=== PATIENT | female | born 1975 | race Caucasian/White ===

== ENCOUNTER 2024-06-15 09:27 | Outpatient (CLI) | payer MEDICARE, MEDICAID, SELFPAY ==
--- NOTE | 2024-06-15 09:33 | XR_ITS ---
FINAL REPORT CLINICAL HISTORY: Right foot pain FINDINGS: RIGHT FOOT 3 views of the right foot were obtained. There is no acute fracture or dislocation. There is a moderate hallux valgus deformity. Postoperative changes are seen in the fifth metatarsal tarsal with a healed fracture noted. There is an old healed fracture of the fourth metatarsal. Calcaneal spurring is noted. IMPRESSION: Postoperative and degenerative changes with no acute bony abnormality. Reviewed, Interpreted and Dictated by Sushila Zamora MD Transcribed by Jessi Paul Authenticated and [facility]
--- NOTE | 2024-06-15 09:33 | XR_ITS ---
FINAL REPORT CLINICAL HISTORY: Left foot pain. FINDINGS: LEFT FOOT Three views of the left foot demonstrate no acute fracture or there are mild diffuse degenerative changes. Mild calcaneal spurring is noted. The visualized joint spaces are normally aligned. The soft tissues are unremarkable. IMPRESSION: Mild degenerative changes with no acute bony abnormality. Reviewed, Interpreted and Dictated by Sushila Zamora MD Transcribed by Jessi Paul Authenticated and [facility]
[2024-06-23 18:10] LABS: 1,25 Dihydroxy Vitamin D 15 pg/mL (.); 1,25-Dihydroxy, Vitamin D-2 <10 pg/mL (.); 1,25-Dihydroxy, Vitamin D-3 13 pg/mL (.)
[2024-07-14 11:46] LABS: Cotinine 230.1
== END 2024-06-15 23:59 | disposition home or self-care (01) ==
PROVIDERS: PCP Nurse Practitioner; Visit Provider Podiatrist
DX: M79.671 Pain in right foot; M79.672 Pain in left foot; M20.41 Other hammer toe(s) (acquired), right foot; M20.42 Other hammer toe(s) (acquired), left foot; R60.9 Edema, unspecified; E66.9 Obesity, unspecified; Z68.31 Body mass index [BMI] 31.0-31.9, adult; Z72.0 Tobacco use
CPT/HCPCS: 36415; 73630; 80323; 82652; G0480

== ENCOUNTER 2024-06-18 14:03 | Outpatient (CLI) | payer MEDICARE, MEDICAID, SELFPAY ==
--- NOTE | 2024-06-18 14:08 | US_ITS ---
FINAL REPORT CLINICAL HISTORY: Decreased Pedal Pulses, current smoker, HTN, DM, hyperlipidemia, bilateral claudication, bilateral rest pain. COMPARISON: None FINDINGS: LOWER EXTREMITY SEGMENTAL PRESSURE MEASUREMENTS FINDINGS: Pressure indices are as follows: RIGHT LOWER EXTREMITY: Thigh: 1.29 Calf: 1.28 Ankle, posterior tibial artery: 1.17 Ankle, dorsalis pedis: 1.15 Toe: 1.00 SHANON: 1.17 Comments: Normal LEFT LOWER EXTREMITY: Thigh: 1.28 Calf: 1.38 Ankle, posterior tibial artery: 1.29 Ankle, dorsalis pedis: 1.18 Toe: 0.91 SHANON: 1.29 Comments: Normal IMPRESSION: No evidence of significant peripheral vascular disease. Reviewed, Interpreted and Dictated by Sushila Zamora MD Transcribed by Leatha Hagan Authenticated and [facility]
== END 2024-06-18 23:59 | disposition home or self-care (01) ==
LOC: RT 14:04
PROVIDERS: PCP Nurse Practitioner; Visit Provider Podiatrist
DX: R09.89 Other specified symptoms and signs involving the circulatory and respiratory systems (principal)
CPT/HCPCS: 93923

== ENCOUNTER 2024-07-28 11:41 | Outpatient (CLI) | payer MEDICARE, MEDICAID, SELFPAY ==
--- NOTE | 2024-07-28 11:45 | XR_ITS ---
FINAL REPORT CLINICAL HISTORY: foot pain COMPARISON: 06/15/2024 FINDINGS: RIGHT FOOT: Three views of the right foot were obtained. There is no acute fracture or dislocation. A mild hallux valgus deformity is present. Postoperative changes are noted in the fifth metatarsal. There is a chronic fourth metatarsal fracture. Calcaneal spurs are present, along with mild degenerative change, stable. The joint spaces are otherwise intact. There is no soft tissue abnormality. IMPRESSION: Postoperative changes in the fifth metatarsal, with a chronic fourth metatarsal fracture, without acute bony abnormality. Mild degenerative change and calcaneal spurs. Reviewed, Interpreted and Dictated by Santos Acosta III, MD Transcribed by Roula Bonner Authenticated and . [facility]
== END 2024-07-28 23:59 | disposition home or self-care (01) ==
LOC: RAD 11:43
PROVIDERS: PCP Nurse Practitioner; Visit Provider Podiatrist
DX: M77.41 Metatarsalgia, right foot; S99.921S Unspecified injury of right foot, sequela; M79.671 Pain in right foot
CPT/HCPCS: 73630

== ENCOUNTER 2024-08-12 06:37 | Outpatient (CLI) | payer MEDICARE, MEDICAID, SELFPAY ==
--- NOTE | 2024-08-12 06:53 | CT_ITS ---
FINAL REPORT TECHNIQUE: Thin section axial CT images with coronal and sagittal reformats were performed of the right foot. This study was performed with techniques to keep radiation doses as low as reasonably achievable (ALARA). Individualized dose reduction techniques using automated exposure control or adjustment of mA and/or kV according to the patient''s size were employed. CLINICAL HISTORY: Right Foot Pain FINDINGS: Sideplate and screws are seen securing the fifth metatarsal. There is a healed fracture defect of the fourth metatarsal. Mild hammertoe deformity is noted of the 2nd through 5th digits. There are no masses or fluid collections. There are no soft tissue abnormalities. IMPRESSION: Healed fracture deformities of the fourth and fifth metatarsals with sideplate and screw fixation of the fifth metatarsal. Reviewed, Interpreted and Dictated by Chilo Steward MD Transcribed by Sydni Driver Authenticated and [facility]
== END 2024-08-12 23:59 | disposition home or self-care (01) ==
LOC: RAD 06:39
PROVIDERS: PCP Nurse Practitioner; Visit Provider Podiatrist
DX: M84.374S Stress fracture, right foot, sequela (principal); M79.671 Pain in right foot
CPT/HCPCS: 73700

== ENCOUNTER 2025-01-11 10:41 | Emergency (ER) | payer MEDICARE, MEDICAID, SELFPAY ==
[2025-01-11 11:16] VITALS: BP 102/59; PULSE 87; RESP 18; TEMP 36.7; O2SAT 96; BMI 31.8
--- NOTE | 2025-01-11 11:21 | XR_ITS ---
FINAL REPORT CLINICAL HISTORY: FALL FINDINGS: AP, lateral and oblique views of the left knee were obtained. There is no prior exam for comparison. There is no acute osseous abnormality of the left knee. There is mild degenerative joint disease. The soft tissues are normal. There is no joint effusion. IMPRESSION: No acute osseous abnormality of the left knee. Reviewed, Interpreted and Dictated by Yaima Goel MD Transcribed by Tania Bradley Authenticated and [facility]
--- NOTE | 2025-01-11 11:42 | PC.NURSE ---
PT REPORTS TETANUS LAST YEAR
--- NOTE | 2025-01-11 12:28 | ED_ITS ---
<Statement entered by Nila Boykin DO - 01/11/25 13:52> I was consulted by the CANELO, and we discussed the complexity of the problems being addressed. I approved the treatment and management plan for this patient's care in the emergency department, thus performing a substantive portion of the medical decision making. Nila Boykin DO Discharge Plan Disposition Patient Disposition: Home, Self-Care Condition: Good Prescriptions Prescriptions: No Action zolpidem 10 mg tablet PO Patient Comments: TAKE ONE TABLET BY MOUTH DAILY gabapentin 800 mg tablet PO Ozempic 0.25 mg or 0.5 mg (2 mg/3 mL) pen injector SQ Patient Comments: inject 0.5 milligrams subcutaneously once weekly loratadine 10 mg tablet PO Patient Comments: TAKE ONE TABLET BY MOUTH DAILY buspirone 10 mg tablet PO Patient Comments: Take 1 tablet twice a day by oral route for 90 days. metformin 1,000 mg tablet PO Patient Comments: TAKE ONE TABLET BY MOUTH TWICE DAILY FOR 90 DAYS paroxetine HCl 20 mg tablet PO Patient Comments: TAKE ONE TABLET BY MOUTH DAILY FOR 90 DAYS tizanidine 4 mg tablet PO Patient Comments: Take 1 tablet twice a day by oral route as needed for 90 days. lisinopril-hydrochlorothiazide 20-12.5 mg tablet PO Patient Comments: Take 1 tablet every day by oral route. fenofibrate 160 mg tablet PO meloxicam 15 mg tablet PO atorvastatin 80 mg tablet PO lisinopril 10 mg tablet PO cholecalciferol (vitamin D3) 1,250 mcg (50,000 unit) capsule 1,250 mcg PO WEEKLY 84 Days Qty: 12 3RF Referrals Follow up/Referrals: Jocelyn Lay APRN [Primary Care Provider] - See instructions Activity Restrictions/Add. Instructions Additional Instructions/Restrictions: Please continue taking Tylenol alternating with Motrin for pain and swelling. You may ice rest elevate to help keep the swelling down. If you have continuing new or worsening signs or symptoms follow-up with your PCP. Please continue putting bacitracin over your abrasion. Clinical Impressions Clinical Impression: Contusion of knee, left Qualifiers: Encounter type: initial encounter Qualified Code(s): S80.02XA - Contusion of left knee, initial encounter Abrasion of knee, left Qualifiers: Encounter type: initial encounter Qualified Code(s): S80.212A - Abrasion, left knee, initial encounter Instructions Patient Instructions: DI for Contusion, DI for Abrasion Print Language Print Language: Cypriot Discharge ED Provider: Nila Boykin General Adult HPI <LUIGI Gonzalez - Last Filed: 01/11/25 12:58> General Chief complaint: PAIN Stated complaint: AO 10:00 am fell on ice left knee pain Time Seen by Provider: 01/11/25 12:27 Mode of Arrival: Wheelchair Source of Information: Patient Limitations: No Limitations Description of Symptoms (Recalled from ER Triage Doc. by RN): PT C/O LEFT KNEE PAIN AFTER FALL ON ICE, LANDING IN [place]. ABRASIONS NOTED, COVERED WITH 4X4 History of Present Illness HPI narrative: Patient presents for evaluation of left knee pain after a fall. Patient states she was walking and slipped on ice landing on her left knee. Patient has been able to bear weight but it is very painful. She suffered an abrasion to the anterior knee. She denies any numbness tingling loss of motor or sensory. She did not injure anything else. Related Data Home Medications ?Medication ?Instructions ?Recorded ?Confirmed atorvastatin 80 mg tablet mg PO 06/15/24 09/14/24 buspirone 10 mg tablet mg PO 06/15/24 09/14/24 fenofibrate 160 mg tablet mg PO 06/15/24 09/14/24 gabapentin 800 mg tablet mg PO 06/15/24 09/14/24 lisinopril 10 mg tablet mg PO 06/15/24 09/14/24 lisinopril 20 tab PO 06/15/24 09/14/24 mg-hydrochlorothiazide 12.5 mg tablet loratadine 10 mg tablet mg PO 06/15/24 09/14/24 meloxicam 15 mg tablet mg PO 06/15/24 09/14/24 metformin 1,000 mg tablet mg PO 06/15/24 09/14/24 paroxetine HCl 20 mg tablet mg PO 06/15/24 09/14/24 semaglutide 0.25 mg or 0.5 mg (2 mg SQ 06/15/24 09/14/24 mg/3 mL) subcutaneous pen injector (Ozempic) tizanidine 4 mg tablet mg PO 06/15/24 09/14/24 zolpidem 10 mg tablet mg PO 06/15/24 09/14/24 Previous Rx's ?Medication ?Instructions ?Recorded cholecalciferol (vitamin D3) 1,250 1,250 mcg PO WEEKLY 12 weeks #12 06/24/24 mcg (50,000 unit) capsule caps Allergies Allergy/AdvReac Type Severity Reaction Status Date / Time acetaminophen (From Lortab) Allergy Mild Verified 09/14/24 10:13 hydrocodone (From Lortab) Allergy Mild Verified 09/14/24 10:13 Sulfa (Sulfonamide Allergy Mild Verified 09/14/24 10:13 Antibiotics) SHELLFISH Allergy Severe S-SWELLS-OR Uncoded 11/11/17 15:37 AL/THROAT SULFA (SULFONAMIDE) Allergy Intermediate I-HIVES Uncoded 11/11/17 15:37 PFS <LUIGI Gonzalez - Last Filed: 01/11/25 12:58> PFS Disclaimer: The information contained in this section may have been updated after the patient was seen, as this information can be updated by other users. Family History Father Coronary artery disease Diabetes Hypertension Mother Diabetes Hypertension Brother Diabetes Grandfather Diabetes Grandmother Diabetes Social History Smoking Status: Current every day smoker years smoked: 30 second hand exposure: Yes alcohol intake: never substance use type: denies use current occupational status: retired and disabled Travel in the last 8 weeks: None household members: other details: Mother and Father Have you lived/traveled outside [place] in past 30 days?: No Contact w/someone who lives/traveled outside US past 30 days?: No Exposure to someone with infectious disease in past 14 days?: No Do you have a fever (greater than 100.4 F or 38 C)?: No Have you tested positive for COVID-19: No Exposed to someone with COVID-19 in past 14 days?: No Do you have a sore throat?: No Do you have a cough?: No Do you have any weakness?: No Do you have any diarrhea?: No Are you experiencing any unusual bleeding?: Yes Do you have any muscle aches/pain?: No Do you have any abdominal pain?: No Are you experiencing loss of taste or smell?: No <LUIGI Gonzalez - Last Filed: 01/11/25 12:58> ROS Obtained: Yes Systems reviewed as appropriate & no additional complaints except as documented Physical Exam <LUIGI Gonzalez - Last Filed: 01/11/25 12:58> General General appearance: alert and in no apparent distress Respiratory Respiratory exam: Present normal lung sounds bilaterally Cardiovascular Cardiovascular exam: Present regular rate Neurological Exam Neurological exam: Present alert and oriented X3 Medical Decision Making <LUIGI Gonzalez - Last Filed: 01/11/25 12:58> Medical Records Screening: Per USPSTF and CDC recommendations, given the prevalence of disease in our region, it is our hospital?s policy to screen for HIV and viral Hepatitis for all patients aged 18 and over and those with ongoing risk factors. Dayne Inquiry Pt receiving controlled substance: No Vital Signs: 01/11/25 11:16 01/11/25 12:55 Temperature 98.0 F 98.2 F Temperature Source Oral Oral Pulse Rate 84 Pulse Rate [Radial] 87 Respiratory Rate 18 18 Blood Pressure 110/64 Blood Pressure [Left Arm] 102/59 L Blood Pressure Mean [Left Arm] 73 Blood Pressure Source Automatic Cuff Blood Pressure Source [Left Arm] Automatic Cuff Blood Pressure Position Sitting Blood Pressure Position [Left Arm] Sitting 02 Sat by Pulse Oximetry 96 Oxygen Delivery Method Room Air Room Air Orders (Tests/Meds): ED MEDICATIONS Discontinued Medications Generic Name Dose Route Start Last Admin Trade Name Dede PRN Reason Stop Dose Admin Ibuprofen 800 mg 01/11/25 12:42 01/11/25 12:47 Ibuprofen 400 Mg Tablet PO 01/11/25 12:43 800 mg ONCE ONE Administration Tramadol HCl 50 mg 01/11/25 12:42 01/11/25 12:47 Tramadol 50mg Tablet PO 01/11/25 12:43 50 mg ONCE ONE Administration ORDERS Category Date Time Status Knee XR left 3 views [XR knee LT 3V] Stat Exams 01/11/25 11:21 Completed HIV Combo Stat Lab 01/11/25 11:20 Ordered Hepatitis C Ab Qual. W/ RFX Stat Lab 01/11/25 11:20 Ordered Medical Decision Narrative: In summary patient is a 1-year-old female who presents to the emergency department for evaluation of left knee injury. Patient is hemodynamically stable upon arrival, afebrile. Physical exam is remarkable for a superficial abrasion over the patella of the left knee. The affected area is tender to palpation but I do not feel any bony deformities crepitus. Patient knee joint is stable with no laxity. She does have reduced range of motion due to pain. She is neurovascularly intact distally with good pulses and full range of motion. Patient is able to bear weight in the ER.. Differential diagnosis includes contusion versus fracture versus soft tissue or ligamentous injury etc. Initial workup will be conducted with plain film x-rays. Initial interventions include ibuprofen and tramadol as patient cannot take Tylenol. Initial workup reviewed by me and my informal TURB Tatian of her plain film imaging shows no acute fracture.. Upon repeat evaluation patient reported modest improvement in her discomfort since after initial intervention. Given this patient is appropriate for discharge with bacitracin applied to the wound and wound care instructions strict return precautions. Patient advised if she has continued new or worsening signs or symptoms follow-up with her PCP as she will likely need further imaging and/or referral to orthopedics. Patient verbalized good understanding. Patient is up-to-date on her tetanus status not done today. <Nila Boykin, DO - Last Filed: 01/11/25 13:52> Vital Signs: 01/11/25 11:16 01/11/25 12:55 Temperature 98.0 F 98.2 F Temperature Source Oral Oral Pulse Rate 84 Pulse Rate [Radial] 87 Respiratory Rate 18 18 Blood Pressure 110/64 Blood Pressure [Left Arm] 102/59 L Blood Pressure Mean [Left Arm] 73 Blood Pressure Source Automatic Cuff Blood Pressure Source [Left Arm] Automatic Cuff Blood Pressure Position Sitting Blood Pressure Position [Left Arm] Sitting 02 Sat by Pulse Oximetry 96 Oxygen Delivery Method Room Air Room Air Orders (Tests/Meds): ED MEDICATIONS Discontinued Medications Generic Name Dose Route Start Last Admin Trade Name Freq PRN Reason Stop Dose Admin Ibuprofen 800 mg 01/11/25 12:42 01/11/25 12:47 Ibuprofen 400 Mg Tablet PO 01/11/25 12:43 800 mg ONCE ONE Administration Tramadol HCl 50 mg 01/11/25 12:42 01/11/25 12:47 Tramadol 50mg Tablet PO 01/11/25 12:43 50 mg ONCE ONE Administration ORDERS Category Date Time Status Knee XR left 3 views [XR knee LT 3V] Stat Exams 01/11/25 11:21 Completed HIV Combo Stat Lab 01/11/25 11:20 Ordered Hepatitis C Ab Qual. W/ RFX Stat Lab 01/11/25 11:20 Ordered Medical Decision Narrative: In summary patient is a 49-year-old female who presents to the emergency department for evaluation of left knee injury. Patient is hemodynamically stable upon arrival, afebrile. Physical exam is remarkable for a superficial abrasion over the patella of the left knee. The affected area is tender to palpation but I do not feel any bony deformities crepitus. Patient knee joint is stable with no laxity. She does have reduced range of motion due to pain. She is neurovascularly intact distally with good pulses and full range of motion. Patient is able to bear weight in the ER.. Differential diagnosis includes contusion versus fracture versus soft tissue or ligamentous injury etc. Initial workup will be conducted with plain film x-rays. Initial interventions include ibuprofen and tramadol as patient cannot take Tylenol. Initial workup reviewed by me and my informal TURB Tatian of her plain film imaging shows no acute fracture.. Upon repeat evaluation patient reported modest improvement in her discomfort since after initial intervention. Given this patient is appropriate for discharge with bacitracin applied to the wound and wound care instructions strict return precautions. Patient advised if she has continued new or worsening signs or symptoms follow-up with her PCP as she will likely need further imaging and/or referral to orthopedics. Patient verbalized good understanding. Patient is up-to-date on her tetanus status not done today. Critical Care <LUIGI Gonzalez - Last Filed: 01/11/25 12:58> Critical Care Time Critical Care Time: No
[2025-01-11] MEDS: IBUPROFEN 400 MG TABLET 800 MG PO (12:47)
[2025-01-11] MEDS: TRAMADOL 50MG TABLET 50 MG PO (12:47)
[2025-01-11 12:55] VITALS: BP 110/64; PULSE 84; RESP 18; TEMP 36.8; O2SAT 97
== END 2025-01-11 12:55 | disposition home or self-care (01) ==
PROVIDERS: Emergency Provider Emergency Medicine; PCP Nurse Practitioner
DX: S80.02XA Contusion of left knee, initial encounter (principal); S80.212A Abrasion, left knee, initial encounter; M25.562 Pain in left knee; Z72.0 Tobacco use; W00.0XXA Fall on same level due to ice and snow, initial encounter; Y93.89 Activity, other specified; Y92.9 Unspecified place or not applicable
CPT/HCPCS: 73562; 99283

== ENCOUNTER 2025-04-19 11:30 | Outpatient (CLI) | payer MEDICARE, MEDICAID, SELFPAY ==
--- NOTE | 2025-04-19 11:35 | XR_ITS ---
FINAL REPORT CLINICAL HISTORY: c/o right foot pain COMPARISON: 07/28/2024 FINDINGS: RIGHT FOOT Three views demonstrate no acute fracture or dislocation. The joint spaces appear normal. No acute soft tissue abnormality is seen. There is a sideplate and screw securing the base of the fifth metatarsal. A moderate plantar spur is noted. There is a moderate Dayami deformity. IMPRESSION: Postoperative and degenerative changes without acute bony abnormality. Reviewed, Interpreted and Dictated by Chilo Steward MD Transcribed by Venessa Lopez Authenticated and [facility]
--- NOTE | 2025-04-19 14:15 | XR_ITS ---
FINAL REPORT CLINICAL HISTORY: LF stress FX COMPARISON: 06/15/2024 FINDINGS: LEFT FOOT Three views were obtained. There is no fracture or dislocation. There is old healed fracture deformity at the base of the fifth metatarsal. There is small to moderate plantar calcaneal spur formation. The joint spaces appear normal. No soft tissue abnormality is identified. IMPRESSION: No acute process. Reviewed, Interpreted and Dictated by Chilo Steward MD Transcribed by Tania Bradley Authenticated and [facility]
== END 2025-04-19 23:59 | disposition home or self-care (01) ==
PROVIDERS: PCP Nurse Practitioner; Visit Provider Podiatrist
DX: M19.071 Primary osteoarthritis, right ankle and foot (principal); M84.375A Stress fracture, left foot, initial encounter for fracture; Z98.890 Other specified postprocedural states
CPT/HCPCS: 73630

== ENCOUNTER 2025-05-16 12:32 | Outpatient (CLI) | payer MEDICARE, MEDICAID, SELFPAY ==
--- OUTSIDE RECORDS SUMMARY | 2025-05-16 12:36 | XMS_ITS | Data Portability ---
Author Organization [employer] [place] [facility] Address [address] [place] [address] Assessment No assessment recorded. Plan of Treatment Reminders Order Date Submit Date Provider Last Modified By Organization Details Last Modified Time Details Appointments FOLLOW UP 30 2024 08:00A Erik Lay APRN Not available Not available Not available Lab HbA1c (hemoglob in A1c), blood [address], [address], 03/21/2025 13:48:38 rapid strep group A, throat [address], [address], 02/10/2025 10:40:48 rapid flu (A+B) [address], [address], 02/10/2025 10:40:48 rapid SARS CoV 2 Ag, QL, IA, upper respirato ry specimen [address], [address], 02/10/2025 10:40:48 drug screen, 14 drugs (detectim ed), urine 2024 025 [facility] [address] [place], [address], 12/26/2024 15:06:15 HbA1c (hemoglob in A1c), blood [address], [address] [place] [address], [id number], 12/21/2024 13:22:14 microalbu min/creat inine, mass ratio, urine [address], [address] [place] [address], [id number], 12/21/2024 13:22:14 CMP, serum or plasma 2024 025 [facility] ([place] [address] [place], [address], 12/22/2024 06:11:00 CBC w/ auto diff 2024 025 [facility] [address] [place], [address], 12/22/2024 06:10:59 TSH + free T4, serum 2024 025 [facility] [address] [place], [address], 12/22/2024 06:10:58 lipid panel, serum 2024 025 [facility] [address] [place], [address], 12/22/2024 06:11:01 vitamin D, 25-hydrox y, total, serum 2024 025 [facility] [address] [place], [address], 12/22/2024 06:11:01 C reactive protein, QN, serum or plasma 2023 024 [facility] [address] [place], [address], 10/15/2024 08:14:04 ESR (erythroc yte sedimenta tion rate), blood 2023 024 [facility]), [facility] [place], [address], 10/15/2024 08:14:03 CBC w/ auto diff 2023 024 [facility]), [facility] [place], [address], 10/15/2024 08:14:02 CMP, serum or plasma 2023 024 [facility]), [facility] [place], [address], 10/15/2024 08:14:02 Referral None recorded. Procedures None recorded. Surgeries None recorded. Imaging XR, lumbosacr al spine, 2 or 3 view 2024 025 [facility], [address] [place] [address], [id number], 12/21/2024 15:40:16 XR, foot, 3 or more view 2024 025 [facility], [address] [place] [address], [id number], 12/21/2024 15:41:16 Medication Orders tizanidin e 4 mg tablet 2024 025 [facility], [address] [place] [address], [id number], 03/21/2025 14:00:31 loratadin e 10 mg tablet 2024 025 [facility], [address] [place] [address], [address], 03/23/2025 13:22:24 zolpidem 10 mg tablet 2024 025 [facility], [address] [place] [address], [address], 04/25/2025 10:54:10 melatonin 10 mg tablet 2024 025 [facility], [address] [place] [address], [address], 03/24/2025 15:18:17 gabapenti n 800 mg tablet 2024 [facility], [address] [place] [address], [address], 03/21/2025 14:10:33 paroxetin e 20 mg tablet 2024 025 [facility], [address] [place] [address], [address], 03/21/2025 14:00:29 Ozempic 0.25 mg or 0.5 mg (2 mg/3 mL) subcutane ous pen injector 2024 025 [facility], [address] [place] [address], [address], 03/21/2025 14:05:35 meloxicam 15 mg tablet 2024 025 [facility], [address] [place] [address], [address], 03/21/2025 14:00:28 azithromy carol 250 mg tablet 2024 025 [facility], [address] [place] [address], [address], 03/21/2025 13:30:11 neomycin- polymyxin -hydrocor t 3.5 mg-10,000 unit/mL-1 % ear drops,birdie p 2024 025 [facility], [address] [place] [address], [address], 02/10/2025 12:02:56 Depo-Medr ol 80 mg/mL suspensio n for injection [address] [facility], [address] [place] [address], [address], 03/21/2025 13:07:41 doxycycli ne monohydra te 100 mg tablet 2024 025 [facility], [address] [place] [address], [address], 03/21/2025 13:30:12 prednison e 20 mg tablet 2024 025 [facility], [address] [place] [address], [address], 03/21/2025 13:30:04 loratadin e 10 mg tablet 2024 025 [facility], [address] [place] [address], [address], 12/25/2024 10:34:21 zolpidem 10 mg tablet 2024 025 [facility], [address] [place] [address], [address], 02/22/2025 12:50:58 paroxetin e 20 mg tablet 2024 025 [facility], [address] [place] [address], [address], 12/22/2024 11:18:30 buspirone 10 mg tablet 2024 025 [facility], [address] [place] [address], [address], 12/24/2024 14:05:29 lisinopri l 20 mg-hydroc hlorothia zide 12.5 mg tablet 2024 025 [facility], [address] [place] [address], [address], 12/22/2024 11:18:33 tizanidin e 4 mg tablet 2024 025 [facility], [address] [place] [address], [address], 12/22/2024 11:18:29 gabapenti n 800 mg tablet 2024 025 [facility], [address] [place] [address], [address], 02/22/2025 12:50:57 atorvasta tin 80 mg tablet 2024 025 [facility], [address] [place] [address], [address], 12/22/2024 11:18:31 fenofibra te 160 mg tablet 2024 025 [facility], [address] [place] [address], [address], 12/22/2024 11:18:30 metformin 1,000 mg tablet 2024 025 [facility], [address] [place] [address], [address], 12/22/2024 11:18:33 Ozempic 0.25 mg or 0.5 mg (2 mg/3 mL) subcutane ous pen injector 2024 025 [facility], [address] [place] [address], [address], 03/23/2025 13:22:23 meloxicam 15 mg tablet [address] [facility], [address] [place] [address], [address], 01/10/2025 12:37:24 prednison e 20 mg tablet [address] [facility], [address] [place] [address], [address], 03/21/2025 13:07:55 Patient TargetsNo targets recorded. Patient Instructions Encounter Date Encounter Id Patient Instructions Last Modified By Organization Details Last Modified Time 12/21/2024 [id number] controlled substance agreement* [email or web address] Not available 12/21/2024 09:40:32 Reason for Referral None Reported. Results Created Date Observation Date Name Description Value Unit Range Abnormal Flag Note LastModifiedBy Organization Detail LastModifiedTime 09/20/20 24 09/20/2024 HbA1c (hemo globi n A1c), blood HbA1c 6.5 Not Available [address], [address], 09/20/2024 09:01:27 10/14/20 24 10/15/2024 CBC WITH DIFFE RENTI AL/PL ATELE T WBC 11.8 x10e3 /uL 3.4-10 .8 above high normal Eff ectiv e Decem han 2023 profi andrea [id number] WBC will be made* * non-o rdera ble as a stand -nuria e order code. Not Available [facility] ([facility]) [address] [facility], [place], [address], 10/15/2024 08:14:02 10/14/2010/15/2024 CBC WITH DIFFE RENTI AL/PL ATELE T RBC 4.72 x10e6 /uL 3.77-5 .28 normal Not Available [facility] ([facility]) [address] [facility], [place], [address], 10/15/2024 08:14:02 10/14/20 24 10/15/2024 CBC WITH DIFFE RENTI AL/PL ATELE T hemoglobin 14.2 g/dL 11.1-1 5.9 normal Not Available [facility] ([facility]) [address] [place], [address], 10/15/2024 08:14:02 10/14/20 24 10/15/2024 CBC WITH DIFFE RENTI AL/PL ATELE T hematocrit 42.8 % 34.0-4 6.6 normal Not Available [facility] ([facility]) [address] [place], [address], 10/15/2024 08:14:02 10/14/20 24 10/15/2024 CBC WITH DIFFE RENTI AL/PL ATELE T MCV 91 fL 79-97 normal Not Available [facility] ([facility]) [address] [place], [address], 10/15/2024 08:14:02 10/14/20 24 10/15/2024 CBC WITH DIFFE RENTI AL/PL ATELE T MCH 30.1 pg 26.6-3 3.0 normal Not Available [facility] ([facility]) [address] [place], [address], 10/15/2024 08:14:02 10/14/20 24 10/15/2024 CBC WITH DIFFE RENTI AL/PL ATELE T MCHC 33.2 g/dL 31.5-3 5.7 normal Not Available [facility] ([facility]) [address] [place], [address], 10/15/2024 08:14:02 10/14/20 24 10/15/2024 CBC WITH DIFFE RENTI AL/PL ATELE T RDW 11.9 % 11.7-1 5.4 Not Available [facility] ([facility]) [address] [place], [address], 10/15/2024 08:14:02 10/14/20 24 10/15/2024 CBC WITH DIFFE RENTI AL/PL ATELE T platelets 249 x10e3 /uL 150-45 0 normal Not Available [facility] ([facility]) [address] [facility], [place], [address], 10/15/2024 08:14:02 10/14/20 24 10/15/2024 CBC WITH DIFFE RENTI AL/PL ATELE T neutrophils 48 % not estab. normal Not Available [facility] ([facility]) [address] [facility], [place], [address], 10/15/2024 08:14:02 10/14/20 24 10/15/2024 CBC WITH DIFFE RENTI AL/PL ATELE T lymphs 39 % not estab. normal Not Available [facility] ([facility]) [address] [facility], [place], [address], 10/15/2024 08:14:02 10/14/20 24 10/15/2024 CBC WITH DIFFE RENTI AL/PL ATELE T monocytes 9 % not estab. normal Not Available [facility] ([facility]) [address] [facility], [place], [address], 10/15/2024 08:14:02 10/14/20 24 10/15/2024 CBC WITH DIFFE RENTI AL/PL ATELE T eos 3 % not estab. normal Not Available [facility] ([facility]) [address] [facility], [place], [address], 10/15/2024 08:14:02 10/14/20 24 10/15/2024 CBC WITH DIFFE RENTI AL/PL ATELE T basos 1 % not estab. normal Not Available [facility] ([facility]) [address] [facility], [place], [address], 10/15/2024 08:14:02 10/14/20 24 10/15/2024 CBC WITH DIFFE RENTI AL/PL ATELE T immature cells SENIOR UI UX DESIGNER Not Available [facility] ([facility]) [address] [place], [address], 10/15/2024 08:14:02 10/14/20 24 10/15/2024 CBC WITH DIFFE RENTI AL/PL ATELE T neutrophils (absolute) 5.7 x10e3 /uL 1.4-7. 0 normal Not Available [facility] ([facility]) [address] [place], [address], 10/15/2024 08:14:02 10/14/20 24 10/15/2024 CBC WITH DIFFE RENTI AL/PL ATELE T lymphs (absolute) 4.7 x10e3 /uL 0.7-3. 1 above high normal Not Available [facility] ([facility]) [address] [place], [address], 10/15/2024 08:14:02 10/14/20 24 10/15/2024 CBC WITH DIFFE RENTI AL/PL ATELE T monocytes(ab solute) 1.1 x10e3 /uL 0.1-0. 9 above high normal Not Available [facility] ([facility]) [address] [place], [address], 10/15/2024 08:14:02 10/14/20 24 10/15/2024 CBC WITH DIFFE RENTI AL/PL ATELE T eos (absolute) 0.3 x10e3 /uL 0.0-0. 4 normal Not Available [facility] ([facility]) [address] [place], [address], 10/15/2024 08:14:02 10/14/20 24 10/15/2024 CBC WITH DIFFE RENTI AL/PL ATELE T baso (absolute) 0.1 x10e3 /uL 0.0-0. 2 normal Not Available [facility] ([facility]) [address] [place], [address], 10/15/2024 08:14:02 10/14/20 24 10/15/2024 CBC WITH DIFFE RENTI AL/PL ATELE T immature granulocytes 0 % not estab. Not Available [facility] ([facility]) [address] [facility], [place], [address], 10/15/2024 08:14:02 10/14/20 24 10/15/2024 CBC WITH DIFFE RENTI AL/PL ATELE T immature grans (abs) 0.0 x10e3 /uL 0.0-0. 1 Not Available [facility] ([facility]) [address] [facility], [place], [address], 10/15/2024 08:14:02 10/14/20 24 10/15/2024 CBC WITH DIFFE RENTI AL/PL ATELE T NRBC SENIOR UI [employer]X DESIGNER Not Available [facility] ([facility]) [address] [facility], [place], [address], 10/15/2024 08:14:02 10/14/20 24 10/15/2024 CBC WITH DIFFE RENTI AL/PL ATELE T hematology comments: SENIOR UI UX DESIGNER Not Available [facility] ([facility]) [address] [facility], [place], [address], 10/15/2024 08:14:02 10/14/20 24 10/15/2024 COMP. METAB OLIC PANEL (14) glucose 140 mg/dL 70-99 above high normal Not Available [facility] ([facility]) [address] [place], [address], 10/15/2024 08:14:02 10/14/20 24 10/15/2024 COMP. METAB OLIC PANEL (14) BUN 9 mg/dL 6-24 normal Not Available [facility] ([facility]) [address] [place], [address], 10/15/2024 08:14:02 10/14/20 24 10/15/2024 COMP. METAB OLIC PANEL (14) creatinine 0.85 mg/dL 0.57-1 .00 normal Not Available [facility] ([facility]) [address] [facility], [place], [address], 10/15/2024 08:14:02 10/14/20 24 10/15/2024 COMP. METAB OLIC PANEL (14) eGFR 83 mL/mi n/1.7 3 >59 normal Not Available [facility] ([facility]) [address] [facility], [place], [address], 10/15/2024 08:14:02 10/14/20 24 10/15/2024 COMP. METAB OLIC PANEL (14) BUN/creatini ne ratio 11 9-23 normal Not Available [facility] ([facility]) [address] [facility], [place], [address], 10/15/2024 08:14:02 10/14/20 24 10/15/2024 COMP. METAB OLIC PANEL (14) sodium 134 mmol/ L 134-14 4 normal Not Available [facility] ([facility]) [address] [facility] [place], [address], 10/15/2024 08:14:02 10/14/20 24 10/15/2024 COMP. METAB OLIC PANEL (14) potassium 4.3 mmol/ L 3.5-5. 2 normal Not Available [facility] ([facility]) [address] [facility], [place], [address], 10/15/2024 08:14:02 10/14/20 24 10/15/2024 COMP. METAB OLIC PANEL (14) chloride 98 mmol/ L 96-106 normal Not Available [facility] ([facility]) [address] [facility] [place], [address], 10/15/2024 08:14:02 10/14/20 24 10/15/2024 COMP. METAB OLIC PANEL (14) carbon dioxide, total 20 mmol/ L 20-29 normal Not Available [facility] ([facility]) [address], [place], [address], 10/15/2024 08:14:02 10/14/20 24 10/15/2024 COMP. METAB OLIC PANEL (14) calcium 10.2 mg/dL 8.7-10 .2 normal Not Available [facility] ([facility]) [address] [place], [address], 10/15/2024 08:14:02 10/14/20 24 10/15/2024 COMP. METAB OLIC PANEL (14) protein, total 7.2 g/dL 6.0-8. 5 normal Not Available [facility] ([facility]) [address] [place], [address], 10/15/2024 08:14:02 10/14/20 24 10/15/2024 COMP. METAB OLIC PANEL (14) albumin 4.6 g/dL 3.8-4. 9 normal Not Available [facility] ([facility]) [address] [place], [address], 10/15/2024 08:14:02 10/14/20 24 10/15/2024 COMP. METAB OLIC PANEL (14) globulin, total 2.6 g/dL 1.5-4. 5 Not Available [facility] ([facility]) [address] [place], [address], 10/15/2024 08:14:02 10/14/20 24 10/15/2024 COMP. METAB OLIC PANEL (14) bilirubin, total <0.2 mg/dL 0.0-1. 2 Not Available [facility] ([facility]) [address] [place], [address], 10/15/2024 08:14:02 10/14/20 24 10/15/2024 COMP. METAB OLIC PANEL (14) alkaline phosphatase 62 IU/L 44-121 normal Not Available [facility]) [address] [place], [address], 10/15/2024 08:14:02 10/14/20 24 10/15/2024 COMP. METAB OLIC PANEL (14) AST (SGOT) 36 IU/L 0-40 normal Not Available [facility] ([facility]) [address] [place], [address], 10/15/2024 08:14:02 10/14/20 24 10/15/2024 COMP. METAB OLIC PANEL (14) ALT (SGPT) 33 IU/L 0-32 above high normal Not Available [facility] ([facility]) [address] [place], [address], 10/15/2024 08:14:02 10/14/20 24 10/15/2024 SEDIM ENTAT ION RATE- WESTE RGREN sedimentatio n rate-westerg nighat 14 mm/HR 0-40 normal Not Available [facility] ([facility]) [address] [place], [address], 10/15/2024 08:14:03 10/14/20 24 10/15/2024 C-LESLIE CTIVE PROTE IN, QUANT C-reactive protein, quant <1 mg/L 0-10 Not Available [facility] ([facility]) [address] [place], [address], 10/15/2024 08:14:04 12/21/1912/22/2024 TSH+F REE T4 TSH 1.880 uIU/m L 0.450- 4.500 normal Not Available [facility] ([facility]) [address] [place], [address], 12/22/2024 06:10:58 12/21/1912/22/2024 TSH+F REE T4 T4,free(dire ct) 1.18 NG/dL 0.82-1 .77 normal Not Available [facility] ([facility]) [address] [place], [address], 12/22/2024 06:10:58 12/21/19 25 12/22/2024 CBC WITH DIFFE RENTI AL/PL ATELE T WBC 12.1 x10e3 /uL 3.4-10 .8 above high normal Not Available [facility] ([facility]) [address] [facility], [place], [address], 12/22/2024 06:10:59 12/21/19 25 12/22/2024 CBC WITH DIFFE RENTI AL/PL ATELE T RBC 4.80 x10e6 /uL 3.77-5 .28 normal Not Available [facility] ([facility]) [address] [facility], [place], [address], 12/22/2024 06:10:59 12/21/1912/22/2024 CBC WITH DIFFE RENTI AL/PL ATELE T hemoglobin 14.4 g/dL 11.1-1 5.9 normal Not Available [facility] ([facility]) [address] [place], [address], 12/22/2024 06:10:59 12/21/1912/22/2024 CBC WITH DIFFE RENTI AL/PL ATELE T hematocrit 42.2 % 34.0-4 6.6 normal Not Available [facility] ([facility]) [address] [place], [address], 12/22/2024 06:10:59 12/21/1912/22/2024 CBC WITH DIFFE RENTI AL/PL ATELE T MCV 88 fL 79-97 normal Not Available [facility] ([facility]) [address] [place], [address], 12/22/2024 06:10:59 12/21/19 25 12/22/2024 CBC WITH DIFFE RENTI AL/PL ATELE T MCH 30.0 pg 26.6-3 3.0 normal Not Available [facility] ([facility]) [address] [facility], [place], [address], 12/22/2024 06:10:59 12/21/1912/22/2024 CBC WITH DIFFE RENTI AL/PL ATELE T MCHC 34.1 g/dL 31.5-3 5.7 normal Not Available [facility] ([facility]) [address] [facility], [place], [address], 12/22/2024 06:10:59 12/21/1912/22/2024 CBC WITH DIFFE RENTI AL/PL ATELE T RDW 12.6 % 11.7-1 5.4 Not Available [facility] ([facility]) [address] [facility], [place], [address], 12/22/2024 06:10:59 12/21/1912/22/2024 CBC WITH DIFFE RENTI AL/PL ATELE T platelets 237 x10e3 /uL 150-45 0 normal Not Available [facility] ([facility]) [address] [facility], [place], [address], 12/22/2024 06:10:59 12/21/1912/22/2024 CBC WITH DIFFE RENTI AL/PL ATELE T neutrophils 50 % not estab. normal Not Available [facility] ([facility]) [address] [facility], [place], [address], 12/22/2024 06:10:59 12/21/1912/22/2024 CBC WITH DIFFE RENTI AL/PL ATELE T lymphs 37 % not estab. normal Not Available [facility] ([facility]) [address] [facility], [place], [address], 12/22/2024 06:10:59 12/21/1912/22/2024 CBC WITH DIFFE RENTI AL/PL ATELE T monocytes 10 % not estab. normal Not Available [facility] ([facility]) [address] [place], [address], 12/22/2024 06:10:59 12/21/19 25 12/22/2024 CBC WITH DIFFE RENTI AL/PL ATELE T eos 2 % not estab. normal Not Available [facility] ([facility]) [address] [place], [address], 12/22/2024 06:10:59 12/21/1912/22/2024 CBC WITH DIFFE RENTI AL/PL ATELE T basos 1 % not estab. normal Not Available [facility] ([facility]) [address] [place], [address], 12/22/2024 06:10:59 12/21/1912/22/2024 CBC WITH DIFFE RENTI AL/PL ATELE T immature cells SENIOR UI UX DESIGNER Not Available [facility] ([facility]) [address] [place], [address], 12/22/2024 06:10:59 12/21/1912/22/2024 CBC WITH DIFFE RENTI AL/PL ATELE T neutrophils (absolute) 6.1 x10e3 /uL 1.4-7. 0 normal Not Available [facility] ([facility]) [address] [place], [address], 12/22/2024 06:10:59 12/21/1912/22/2024 CBC WITH DIFFE RENTI AL/PL ATELE T lymphs (absolute) 4.5 x10e3 /uL 0.7-3. 1 above high normal Not Available [facility] ([facility]) [address] [place], [address], 12/22/2024 06:10:59 12/21/1912/22/2024 CBC WITH DIFFE RENTI AL/PL ATELE T monocytes(ab solute) 1.2 x10e3 /uL 0.1-0. 9 above high normal Not Available [facility] ([facility]) [address] [place], [address], 12/22/2024 06:10:59 12/21/1912/22/2024 CBC WITH DIFFE RENTI AL/PL ATELE T eos (absolute) 0.2 x10e3 /uL 0.0-0. 4 normal Not Available [facility] ([facility]) [address] [facility], [place], [address], 12/22/2024 06:10:59 12/21/19 25 12/22/2024 CBC WITH DIFFE RENTI AL/PL ATELE T baso (absolute) 0.1 x10e3 /uL 0.0-0. 2 normal Not Available [facility] ([facility]) [address] [facility], [place], [address], 12/22/2024 06:10:59 12/21/1912/22/2024 CBC WITH DIFFE RENTI AL/PL ATELE T immature granulocytes 0 % not estab. Not Available [facility] ([facility]) [address] [facility], [place], [address], 12/22/2024 06:10:59 12/21/1912/22/2024 CBC WITH DIFFE RENTI AL/PL ATELE T immature grans (abs) 0.0 x10e3 /uL 0.0-0. 1 Not Available [facility] ([facility]) [address] [place], [address], 12/22/2024 06:10:59 12/21/1912/22/2024 CBC WITH DIFFE RENTI AL/PL ATELE T NRBC SENIOR UI UX DESIGNER Not Available [facility] ([facility]) [address] [place], [address], 12/22/2024 06:10:59 12/21/1912/22/2024 CBC WITH DIFFE RENTI AL/PL ATELE T hematology comments: SENIOR UI UX DESIGNER Not Available [facility] ([facility]) [address] [place], [address], 12/22/2024 06:10:59 12/21/19 25 12/22/2024 COMP. METAB OLIC PANEL (14) glucose 85 mg/dL 70-99 normal Not Available [facility] ([facility]) [address] [facility], [place], [address], 12/22/2024 06:11:00 12/21/1912/22/2024 COMP. METAB OLIC PANEL (14) BUN 16 mg/dL 6-24 normal Not Available [facility] ([facility]) [address] [place], [address], 12/22/2024 06:11:00 12/21/19 25 12/22/2024 COMP. METAB OLIC PANEL (14) creatinine 0.88 mg/dL 0.57-1 .00 normal Not Available [facility] ([facility]) [address] [facility], [place], [address], 12/22/2024 06:11:00 12/21/19 25 12/22/2024 COMP. METAB OLIC PANEL (14) eGFR 80 mL/mi n/1.7 3 >59 normal Not Available [facility] ([facility]) [address] [facility], [place], [address], 12/22/2024 06:11:00 12/21/1912/22/2024 COMP. METAB OLIC PANEL (14) BUN/creatini ne ratio 18 9-23 normal Not Available [facility] ([facility]) [address] [place], [address], 12/22/2024 06:11:00 12/21/1912/22/2024 COMP. METAB OLIC PANEL (14) sodium 136 mmol/ L 134-14 4 normal Not Available [facility] ([facility]) [address] [place], [address], 12/22/2024 06:11:00 12/21/19 25 12/22/2024 COMP. METAB OLIC PANEL (14) potassium 4.5 mmol/ L 3.5-5. 2 normal Not Available [facility] ([facility]) [address] [facility] [place], [address], 12/22/2024 06:11:00 12/21/19 25 12/22/2024 COMP. METAB OLIC PANEL (14) chloride 101 mmol/ L 96-106 normal Not Available [facility] ([facility]) [address] [facility] [place], [address], 12/22/2024 06:11:00 12/21/19 25 12/22/2024 COMP. METAB OLIC PANEL (14) carbon dioxide, total 19 mmol/ L 20-29 below low normal Not Available [facility] ([facility]) [address] [facility] [place], [address], 12/22/2024 06:11:00 12/21/19 25 12/22/2024 COMP. METAB OLIC PANEL (14) calcium 10.8 mg/dL 8.7-10 .2 above high normal Not Available [facility] ([facility]) [address] [place], [address], 12/22/2024 06:11:00 12/21/19 25 12/22/2024 COMP. METAB OLIC PANEL (14) protein, total 7.3 g/dL 6.0-8. 5 normal Not Available [facility] ([facility]) [address] [place], [address], 12/22/2024 06:11:00 12/21/19 25 12/22/2024 COMP. METAB OLIC PANEL (14) albumin 4.6 g/dL 3.8-4. 9 normal Not Available [facility] ([facility]) [address] [facility] [place], [address], 12/22/2024 06:11:00 12/21/19 25 12/22/2024 COMP. METAB OLIC PANEL (14) globulin, total 2.7 g/dL 1.5-4. 5 Not Available [facility] ([facility]) [address] [facility] [place], [address], 12/22/2024 06:11:00 12/21/19 25 12/22/2024 COMP. METAB OLIC PANEL (14) bilirubin, total 0.3 mg/dL 0.0-1. 2 normal Not Available [facility] ([facility]) [address] [facility] [place], [address], 12/22/2024 06:11:00 12/21/19 25 12/22/2024 COMP. METAB OLIC PANEL (14) alkaline phosphatase 60 IU/L 44-121 normal Not Available [facility]) [address] [facility] [place], [address], 12/22/2024 06:11:00 12/21/19 25 12/22/2024 COMP. METAB OLIC PANEL (14) AST (SGOT) 38 IU/L 0-40 normal Not Available [facility] ([facility]) [address] [facility] [place], [address], 12/22/2024 06:11:00 12/21/19 25 12/22/2024 COMP. METAB OLIC PANEL (14) ALT (SGPT) 32 IU/L 0-32 normal Not Available [facility] ([facility]) [address] [facility] [place], [address], 12/22/2024 06:11:00 12/21/19 25 12/22/2024 LIPID PANEL cholesterol, total 122 mg/dL 100-19 9 normal Not Available [facility] ([facility]) [address] [facility] [place], [address], 12/22/2024 06:11:00 12/21/19 25 12/22/2024 LIPID PANEL triglyceride s 185 mg/dL 0-149 above high normal Not Available [facility] ([facility]) [address] [facility], [place], [address], 12/22/2024 06:11:00 12/21/1912/22/2024 LIPID PANEL HDL cholesterol 33 mg/dL >39 below low normal Not Available [facility] ([facility]) [address] [facility] [place], [address], 12/22/2024 06:11:00 12/21/1912/22/2024 LIPID PANEL VLDL cholesterol maci 31 mg/dL 5-40 Not Available [facility] ([facility]) [address] [facility] [place], [address], 12/22/2024 06:11:00 12/21/1912/22/2024 LIPID PANEL LDL chol calc ([facility]) 58 mg/dL 0-99 Not Available [facility] ([facility]) [address] [facility], [place], [address], 12/22/2024 06:11:00 12/21/1912/22/2024 LIPID 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 The Endoc rine Socie ty went on to furth er defin e vitam in D insuf ficie ncy as a level betwe en 21 and 29 ng/mL (2). 1. IOM (Inst itute of Medic ine). 2010. Dieta ry refer ence arianne es for calci um and D. Jordy costello [place]: The [facility] Press . 2. Holic k MF, Jennifer hood [place], Larisa off-F errar i ALEJANDRE, et al. Evalu ation , treat ment, and preve ntion of vitam in D defic iency : an Endoc rine Socie ty clini maci pract ice guide line. JCEM. 2010; 96(7) :1911 -30. Not Available [facility] ([facility]) [address], [place], [address], 12/22/2024 06:11:01 12/21/19 25 12/26/2024 COMPL IANCE DRUG RYAN SIS, UR summary report (summary) FINAL ===== ===== ===== ===== ===== ===== ===== ===== ===== ===== ===== ===== ===== === TOXAS SURE COMP DRUG RYAN SIS,U R ===== ===== ===== ===== ===== ===== ===== ===== ===== ===== ===== ===== ===== === Test Resul t Flag Units Drug Prese nt Gabap entin PRESE NT Zolpi dem PRESE NT Zolpi dem Acid PRESE NT Zolpi dem acid is an expec bhavani metab olite of zolpi dem. Parox etine PRESE NT ===== ===== ===== ===== ===== ===== ===== ===== ===== ===== ===== ===== ===== === Test Resul t Flag Units Ref Range Creat inine 32 mg/dL >=20 ===== ===== ===== ===== ===== ===== ===== ===== ===== ===== ===== ===== ===== === Decla red Medic ation s: Medic ation list was not provi ded. ===== ===== ===== ===== ===== ===== ===== ===== ===== ===== ===== ===== ===== === For clini maci consu ltati on, pleas e call . ===== ===== ===== ===== ===== ===== ===== ===== ===== ===== ===== ===== ===== === Not Available [facility] ([facility]) [address] [facility], [place], [address], 12/26/2024 15:06:15 12/21/19 25 12/26/2024 COMPL IANCE DRUG RYAN SIS, UR pdf . Not Available [facility] ([facility]) [address] [facility], [place], [address], 12/26/2024 15:06:15 12/21/19 25 12/21/2024 micro album in/cr eatin ine, mass ratio , urine Microalbumin 10 Not Available [address], [address], 12/21/2024 08:56:50 12/21/19 25 12/21/2024 micro album in/cr eatin ine, mass ratio , urine Creatinine 50 Not Available [address], [address], 12/21/2024 08:56:50 12/21/19 25 12/21/2024 micro album in/cr eatin ine, mass ratio , urine Ratio <30 Not Available [address], [address], 12/21/2024 08:56:50 12/21/19 25 12/21/2024 HbA1c (hemo globi n A1c), blood HbA1c 6.3 Not Available [address], [address], 12/21/2024 08:56:42 02/11/20 25 02/10/2025 rapid SARS CoV 2 Ag, QL, IA, upper respi rator y speci men SARS CoV Ag negati ve Not Available [address], [address], 02/10/2025 10:04:12 02/11/20 25 02/10/2025 rapid flu (A+B) Flu A negati ve Not Available [address], [address], 02/10/2025 10:04:11 02/11/20 25 02/10/2025 rapid flu (A+B) Flu B negati ve Not Available [address], [address], 02/10/2025 10:04:11 02/11/20 25 02/10/2025 rapid strep group A, throa t Strep negati ve Not Available [address], [address], 02/10/2025 10:04:22 03/21/20 25 03/21/2025 HbA1c (hemo globi n A1c), blood HbA1c 7.2 Not Available [address], [address], 03/21/2025 13:08:13 12/21/19 25 XR, lumbo sacra l spine , 2 or 3 view No observ ation record ed. [address], [place], [address], 12/27/2024 16:32:26 12/21/19 XR, foot, 3 or more view No observ ation record ed. [address], [place], [address], 12/27/2024 16:35:22 01/03/2012/27/2024 MAMMO , scree gabe, digit al, bilat eral No observ ation record ed. Not Available 01/11 14:07:50 01/11/20 25 01/11/2025 XR, knee, 3 view No observ ation record ed. [address], [place], [address], 01/13/2025 16:45:22 04/19/20 25 04/19/2025 XR, foot, 3 or more view No observ ation record ed. [address], [place], [place], [address], 04/19/2025 15:43:07 04/19/20 25 04/19/2025 XR, foot, 3 or more view No observ ation record ed. [email or web address] [facility] [address], [place], [address], 05/02/2025 09:41:12 Result Notes None recorded. Problems Name Problem SNOMED Code Status Onset Date Resolution Date Notes Provider Name and Address Organization Details Recorded Time Pain in limb 53891775 Active 2023 HORACE CHAVEZ [address] [place], [address], [employer] 08:27:41 Diabetic peripheral neuropathy 000687547 Active 2023 Jocelyn Lay APRN [address] [place], [address], [employer] 4 16:26:09 Chronic obstructive pulmonary disease 94420667 Active 2023 Luz Marina [employer] 4 11:39:06 Diabetes mellitus 11996641 Active 2023 Luz Marina chiang, [employer] 4 12:01:05 Sore throat 055065582 Active 2024 Luz Marina Christie [employer]. 5 10:04:19 Problem Notes None recorded. Procedures Surgical History Date Name Laterality Status Provider Name and Address Organization Details Recorded Time 07/01/20 24 Date of Last Pap Smear completed [employer] 09/20/2024 09:00:43 01/02/20 24 Most Recent Mammogram completed [employer]. 01/12/2024 16:56:29 Back Surgery completed [facility]. 09/23/2023 15:32:56 Tubal Ligation completed [facility]. 09/23/2023 15:32:56 Gallbladder Surgery completed [facility]. 09/23/2023 15:32:56 Partial Hysterectomy completed [facility]. 09/23/2023 15:32:56 Imaging Results None recorded. Procedure Notes None recorded. Medical Equipment None Reported. Allergies Allergen ID Allergen Name Allergen Category Reaction Reaction Severity Criticality Documentation Date Start Date Code Code System Note Provider Name and Address Organization Details Recorded Time 62173 Substance with sulfonami de structure and antibacte rial mechanism of action (substanc e) medicatio n Not available Not available Not available 09/23/2023 20326 8003 SNOMED [employer] 15:33:33 84583 acetamino phen / hydrocodo ne medicatio n Not available Not available Not available 09/23/2023 21128 2 RxNorm Jacqueline chiang, [employer] 3 15:33:46 96736 shellfish derived food,medi cation Not available Not available Not available 09/23/2023 19822 UNK Jacqueline chiang, [employer] 3 15:33:51 93080 cephalexi n medicatio n flushing mild Not available 10/09/2023 2231 RxNorm Jocelyn Alireza, [employer] [address] [place], [address], [employer] 3 17:07:19 Medications Name Sig Start Date Stop Date Status Note LastModified by Organization Details LastModified Time metformin 500 mg tablet 2 times a day 09/23 completed Not Available Not Available Not Available atorvastati n 80 mg tablet TAKE ONE TABLET BY MOUTH AT BEDTIME active Not Available Not Available No t Available lisinopril 20 mg-hydrochl orothiazide 12.5 mg tablet TAKE ONE TABLET BY MOUTH EVERY DAY active Not Available Not Available No t Available azithromyci n 250 mg tablet TAKE 2 TABLETS BY MOUTH ON DAY 1, THEN TAKE 1 TABLET DAILY ON DAYS 2-5 03/21 completed Not Available Not Available Not Available tizanidine 4 mg tablet Take 1 tablet twice a day by oral route as needed for 90 days. 2024 active Not Available Not Available Not Avai lable meloxicam 15 mg tablet TAKE ONE TABLET BY MOUTH EVERY DAY active Not Available Not Available No t Available prednisone 20 mg tablet TAKE ONE TABLET BY MOUTH THREE TIMES DAILY FOR THREE DAYS 03/21 completed Not Available Not Available Not Available Accu-Chek Softclix Lancets active Not Available Not Available Not Available ciprofloxac in 500 mg tablet Take 1 tablet every 12 hours by oral route for 7 days. 12/23 completed Not Available Not Available Not Available doxycycline monohydrate 100 mg tablet TAKE ONE TABLET BY MOUTH TWICE DAILY 03/21 completed Not Available Not Available Not Available Depo-Medrol 80 mg/mL suspension for injection Take 1 mL by injection route. 03/21 completed Not Available Not Available Not Available gabapentin 800 mg tablet Take 1 tablet 4 times a day by oral route for 30 days. 2024 active Not Available Not Available Not Avai lable cephalexin 500 mg capsule Take 1 capsule twice a day by oral route for 7 days. 12/23 completed Not Available Not Available Not Available paroxetine 20 mg tablet Take 1 tablet every day by oral route for 90 days. 2024 active Not Available Not Available Not Avai lable metformin 1,000 mg tablet TAKE ONE TABLET BY MOUTH TWICE DAILY active Not Available Not Available No t Available nystatin 100,000 unit/gram topical cream APPLY TO THE AFFECTED AREA(S) BY TOPICAL ROUTE 2 TIMES PER DAY active Not Available Not Available No t Available buspirone 10 mg tablet TAKE ONE TABLET BY MOUTH TWICE DAILY active Not Available Not Available No t Available lisinopril 10 mg tablet Take 1 tablet every day by oral route. 03/23 completed Not Available Not Available Not Available albendazole 200 mg tablet 09/23 completed Not Available Not Available Not Available lisinopril 5 mg tablet 1 time daily 12/23 completed Not Available Not Available Not Available mupirocin 2 % topical ointment APPLY A SMALL AMOUNT TO THE AFFECTED AREA BY TOPICAL ROUTE 3 TIMES PER DAY 02/08 completed Not Available Not Available Not Available zolpidem 5 mg tablet 1 times daily 09/23 completed Not Available Not Available Not Available zolpidem 10 mg tablet TAKE ONE TABLET BY MOUTH AT BEDTIME active Not Available Not Available No t Available loratadine 10 mg tablet TAKE ONE TABLET BY MOUTH EVERY DAY active Not Available Not Available No t Available neomycin-po lymyxin-hyd rocort 3.5 mg-10,000 unit/mL-1 % ear drops,susp INSTILL 4 DROPS INTO AFFECTED EAR(S) BY OTIC ROUTE 3 TIMES PER DAY active Not Available Not Available No t Available escitalopra m 10 mg tablet 09/23 completed Not Available Not Available Not Available escitalopra m 20 mg tablet 09/23 completed Not Available Not Available Not Available bupropion HCl XL 300 mg 24 hr tablet, extended release 2 times a day 09/23 completed Not Available Not Available Not Available duloxetine 20 mg capsule,del ayed release 06/22 completed Not Available Not Available Not Available fenofibrate 160 mg tablet TAKE ONE TABLET BY MOUTH EVERY DAY active Not Available Not Available No t Available cholecalcif sakina (vitamin D3) 1,250 mcg (50,000 unit) capsule TAKE ONE CAPSULE BY MOUTH EVERY week active Not Available Not Available No t Available melatonin 10 mg tablet Take 1 tablet every day by oral route at bedtime, for insomnia. 2024 active Not Available Not Available Not Francisco jones Linzess 290 mcg capsule active Not Available Not Available Not Available Accu-Chek Guide test strips active Not Available Not Available Not Available Accu-Chek Guide Glucose Meter active Not Available Not Available Not Available Ozempic 0.25 mg or 0.5 mg (2 mg/1.5 mL) subcutaneou s pen injector Inject 0.5 mg every week by subcutane ous route. 12/23 completed Not Available Not Available Not Available Ozempic 0.25 mg or 0.5 mg (2 mg/3 mL) subcutaneou s pen injector inject 0.5 milligram s subcutane ously once weekly 2024 active Not Available Not Available Not Francisco jones Vitals Date Recorded Body height Body mass index (BMI) Body weight Heart rate Oxygen saturation Oxygen saturation in Arterial blood by Pulse oximetry Systolic blood pressure Diastolic blood pressure Provider Name and Address Organization Details Last Updated DateTime 5 162.56 cm 33.8 kg/m2 72514.7 g 97 /min 93 % 93 % 122 mm[Hg] 83 mm[Hg] Luz Marina Christie [employer] 5 09:11:42 Date Recorded Body height Body mass index (BMI) Body weight Body temperature Heart rate Oxygen saturation Oxygen saturation in Arterial blood by Pulse oximetry Systolic blood pressure Diastolic blood pressure Provider Name and Address Organization Details Last Updated DateTime 5 162.56 cm 34 kg/m2 74760.2 9 g 97 [degF] 94 /min 98 % 98 % 113 mm[Hg] 76 mm[Hg] Erna Rosa [employer] 5 14:35:45 Date Recorded Body height Body mass index (BMI) Body weight Body temperature Heart rate Oxygen saturation Oxygen saturation in Arterial blood by Pulse oximetry Systolic blood pressure Diastolic blood pressure Provider Name and Address Organization Details Last Updated DateTime 5 162.56 cm 34.5 kg/m2 40611.0 7 g 96.6 [degF] 90 /min 95 % 95 % 117 mm[Hg] 72 mm[Hg] Luz Marina Christie [employer] 5 09:32:13 Date Recorded Body height Body mass index (BMI) Body weight Heart rate Oxygen saturation Oxygen saturation in Arterial blood by Pulse oximetry Systolic blood pressure Diastolic blood pressure Provider Name and Address Organization Details Last Updated DateTime 5 162.56 cm 32.1 kg/m2 30100.7 7 g 96 /min 95 % 95 % 122 mm[Hg] 79 mm[Hg] Luz Marina Christie [employer] 5 13:14:21 Date Recorded Body height Body mass index (BMI) Body weight Body temperature Heart rate Oxygen saturation Oxygen saturation in Arterial blood by Pulse oximetry Systolic blood pressure Diastolic blood pressure Provider Name and Address Organization Details Last Updated DateTime 4 162.56 cm 33.7 kg/m2 66962.8 g 98.5 [degF] 91 /min 96 % 96 % 127 mm[Hg] 84 mm[Hg] Luz Marina Christie [employer] 4 09:07:06 Social History Question Answer Notes LastModified by Organizat ion Details LastModified Time Tobacco Smoking Status Current Every Day Smoker Jacqueline chiang [employer] 09/23/2023 15:33:05 Do You Have An Advance Directive? No Information n ot available 09/23/2023 Is Your Home Air Conditioned? Yes Information not available 09/23/2023 Do You Wear A Helmet When Biking? No Information not available 09/23/2023 Are You Blind Or Do You Have Difficulty Seeing? No Information n ot available 09/23/2023 What Is Your Level Of Caffeine Consumption? Moderate Information not available 09/23/2023 In The 14 Days Before Symptom Onset, Have You Had Close Contact With A Laboratory-confirm ed COVID-19 While That Case Was Ill? No Information n ot available 09/23/2023 In The 14 Days Before Symptom Onset, Have You Had Close Contact With A Person Who Is Under Investigation For COVID-19 While That Person Was Ill? No Information not available 09/23/2023 Have You Been To An Area Known To Be High Risk For COVID-19? No Information not available 09/23/2023 Are You Deaf Or Do You Have Serious Difficulty Hearing? No Information not available 09/23/2023 What Type Of Diet Are You Following? REGULAR Information n ot available 09/23/2023 How Many Times Per Week Do You Exercise? 1-2 Times Per Week [email or web address] Information not available 02/08/2025 Have There Been Any Changes To Your Family Or Social Situation? No Information no t available 09/23/2023 Are There Any Guns Present In Your Home? No Information not available 09/23/2023 Which Of Your Hands Is Dominant? Right Information n ot available 09/23/2023 Do You Have A Medical Power Of Director Physical? No Information not available 09/23/2023 What Was The Date Of Your Most Recent Tobacco Screening? 03/21/2025 Information not available 03/21/2025 What Is Your Current Pack Years? 30ormorepacky ears Information not available 09/20/2024 Do You Have Any Pets? Yes Information not available 09/23/2023 What Is Your Relationship Status? Information not available 09/23/2023 Have You Repeated Any Grades? No Information not available 09/23/2023 Do You Use Your Seat Belt Or Car Seat Routinely? Yes Information not available 09/23/2023 Are You Sexually Active? No Information not available 09/23/2023 Do You Have Any Siblings? 2 Information not available 09/23/2023 Do You Have Smoke And Carbon Monoxide Detectors In Your Home? Yes Information not available 09/23/2023 At What Age Did You Start Smoking Tobacco? 13 Information not available 09/23/2023 Are You Passively Exposed To Smoke? Yes Information no t available 09/23/2023 Are There Any Smokers In Your House? Yes Information not available 09/23/2023 How Much Tobacco Do You Smoke? 1 PPD Information not available 09/23/2023 Do You Use Sunscreen Routinely? No Information not available 09/23/2023 Has Tobacco Cessation Counseling Been Provided? Yes Information not available 09/23/2023 On What Date Was Tobacco Cessation Counseling Provided? 02/10/2025 Information not available 02/10/2025 Have You Recently Traveled Abroad? No Information not available 09/23/2023 Sex: Female Functional Status Question Answer Note LastModified by Organizat ion Details LastModified Time Do you use any illicit or recreational drugs? No Information not available 09/23/2023 Are you currently employed? No Information not available 09/23/2023 Are you able to walk? YESWOREST Information not available 09/23/2023 Do you have difficulty doing errands alone? No Information not available 09/23/2023 Are you able to care for yourself? Yes Information n ot available 09/23/2023 Do you have difficulty dressing or bathing? No Information not available 09/23/2023 What is your exercise level? Occasional Information not available 09/23/2023 Mental Status Question Answer Note LastModified by Organization D etails LastModified Time Are you or have you been involved with bullying? No Information not available 09/23/2023 Family History Relationship Description Onset Age of this Age Resolved Age Notes LastModified by Organization Details LastModified Time Mother Hypercholest erolemia Not available 2022 15:33:16 Mother Hypertensive disorder Not available 2022 15:33:16 Father Hypercholest erolemia Not available 2022 15:33:16 Father Hypertensive disorder Not available 2022 15:33:16 Medical History Condition Response Diabetes Y Anxiety Disorder Y Other Y Arthritis Y Hospitalizations N Emergency room visit since last appointm ent. N Depression Y ADD/ADHD N Bladder or Kidney Problems Y High Cholesterol Y Hypertension Y Osteoporosis Y Gynecological History Statement/Question Response Menses Monthly N HPV Vaccine N Date of Last Pap Smear 07/01/2024 Most Recent Mammogram 01/02/2024 Age at First Child 13 Obstetrics History GPAL:G 0 P 0 0 0 0 Immunizations Vaccine Type Date Status Note Provider Name and Address Organization Details Recorded Time Tdap 10/09/20 23 completed Jocelyn Lay APRN [address] [place] [address], [phone], [facility] [employer] 10/09/2023 15:16:25 zoster recombinant 03/23/20 24 cancelled patient objection Jocelyn Lay APRN [address] [place] [address], [phone], [employer] 03/23/2024 10:18:41 Influenza, split virus, quadrivalent, PF 08/21/20 17 completed Jacqueline chiang, [place] [employer] 01/26/2024 15:44:18 Influenza, split virus, quadrivalent, PF 09/04/20 16 completed Jacqueline Marioe null, [place] [employer] 01/26/2024 15:44:18 Past Encounters Encounter ID Performer Location Encounter Start Date Encounter Closed Date Diagnosis/Indication Diagnosis SNOMED-CT Code Diagnosis ICD10 Code Diagnosis Note [id number] Jocelyn Lay [address] [address] 09/23/2023 15:13:10 09/23/2023 16:37:24 Type 2 diabetes mellitus without complication 680705142 E11.9 Fatigue 42755859 R53.83 Hyperlipidemia 51133465 E78.5 Vitamin B deficiency 479 E53.9 Vitamin D deficiency 347 83602 E55.9 Long-term drug therapy 850263552 Z79.899 Essential hypertension 28725824 I10 Body mass index 30+ - obesity 941381466 Z68.36 [id number] Jocelyn Lay [address] [address] 10/09/2023 14:29:33 10/09/2023 15:16:17 Puncture wound of foot 99108656 S91.331A Body mass index 30+ - obesity 386118140 Z68.36 [id number] [place] [address] 12/23/2023 10:06:36 12/23/2023 10:54:17 Diabetes mellitus 44199758 E11.9 Screening for malignant neoplasm of breast 816995225 Z12.39 Generalize d anxiety disorder 92999244 F41.1 Hyperlipidemia 45665477 E78.5 Essential hypertension 23441005 I10 Allergic rhinitis 254808 04 J30.9 Pain of mu ltiple joints 64185109 M25.50 Type 2 stan betes mellitus without complication 755780782 E11.9 Dysthymia 96139317 F34.1 Pain in limb 91240452 M7 9.609 Primary insomnia 3573204 F51.01 Body mass index 30+ - obesity 182701884 Z68.36 [id number] [place] [address] 01/26/2024 15:34:30 01/26/2024 16:46:49 Pain in left foot 9203356081 64719 M79.672 Body mass index 30+ - obesity 341179065 Z68.36 [id number] [place] [address] 03/23/2024 08:46:39 03/23/2024 09:48:43 Diabetes mellitus 47229745 E11.9 Cervical c ancer Papanicolaou smear screening declined 1910078716 17724 Z53.20 Colonoscopy declined 983 6239592 [address] vaccination declined 4570965207 102 Z28.20 Shingles VIS given for pt education Hyperlipidemia 63848129 E78.5 Essential hypertension 50645329 I10 Vitamin D deficiency 347 59305 E55.9 Generalize d anxiety disorder 74098190 F41.1 Allergic rhinitis 004001 04 J30.9 Pain of mu ltiple joints 11247542 M25.50 Type 2 stan betes mellitus without complication 391210868 E11.9 Dysthymia 95915021 F34.1 Pain in limb 68923076 M7 9.609 Primary insomnia 3605270 F51.01 Body mass index 30+ - obesity 424855580 Z68.36 [id number] [place] [address] 04/06/2024 15:40:34 04/06/2024 16:21:43 Long-term drug therapy 691478030 Z79.899 Diabetic p eripheral neuropathy 071331284 E11.40 Body mass index 30+ - obesity 272748566 Z68.36 [id number] [place] [address] 0 04/29/2024 12:58:46 04/29/2024 13:31:52 Infection of skin 840957960 L08.9 Acquired h ammer toe of right foot 3301953832 884346 M20.41 Body mass index 30+ - obesity 084574206 Z68.36 [id number] [place] [address] 0 06/22/2024 11:13:57 06/22/2024 12:46:23 Diabetes mellitus 91288188 E11.9 Hyperlipidemia 65978299 E78.5 Generalize d anxiety disorder 69990898 F41.1 Diabetic p eripheral neuropathy 549857918 E11.40 Essential hypertension 00554024 I10 Allergic rhinitis 827700 04 J30.9 Type 2 stan betes mellitus without complication 463115856 E11.9 Dysthymia 09859036 F34.1 Pain in limb 42049640 M7 9.609 Primary insomnia 1292897 F51.01 Body mass index 30+ - obesity 565065232 Z68.36 [id number] [place] [address] 0 07/01/2024 07:49:23 07/01/2024 08:41:14 Gynecologic examination 94610868 Z01.419 Candidiasis of vagina 72 390485 B37.31 Body mass index 30+ - obesity 959066077 Z68.36 [id number] [place] [address] 0 09/20/2024 08:53:26 09/20/2024 10:09:43 Diabetes mellitus 64065947 E11.9 Hyperlipidemia 98095045 E78.5 Generalize d anxiety disorder 15062063 F41.1 Diabetic p eripheral neuropathy 214330661 E11.40 Essential hypertension 78460612 I10 Allergic rhinitis 685672 04 J30.9 Pain of mu ltiple joints 04024776 M25.50 Type 2 stan betes mellitus without complication 428833036 E11.9 Dysthymia 34423134 F34.1 Pain in limb 86759596 M7 9.609 Primary insomnia 9506702 F51.01 [id number] [place] [address] 0 10/14/2024 08:51:36 10/14/2024 09:42:47 Temporal arteritis 437709352 M31.6 Body mass index 30+ - obesity 088181085 Z68.36 [id number] [place] [address] 0 12/21/2024 08:36:35 12/21/2024 09:41:27 Diabetes mellitus 37952311 E11.9 Long-term drug therapy 420860876 Z79.899 Low back pain 325708515 M54.50 Pain in right foot 01232 65449 53829 M79.671 Fatigue 07750985 R53.83 Hyperlipidemia 51725880 E78.5 Vitamin D deficiency 347 94833 E55.9 Generalize d anxiety disorder 17214404 F41.1 Diabetic p eripheral neuropathy 752694797 E11.40 Essential hypertension 09513708 I10 Allergic rhinitis 426646 04 J30.9 Pain of mu ltiple joints 27813037 M25.50 Type 2 stan betes mellitus without complication 966313363 E11.9 Dysthymia 19950235 F34.1 Pain in limb 36391162 M7 9.609 Primary insomnia 4904958 F51.01 Body mass index 30+ - obesity 881777335 Z68.36 [id number] Jocelyn Lay [place] [address] 0 02/08/2025 14:20:09 02/08/2025 15:20:36 Acute right otitis media 560576747 H66.91 Lower resp iratory tract infection 56250429 J22 Body mass index 30+ - obesity 122103561 Z68.36 [id number] Jocelyn Lay APRN [place] [address] 0 02/10/2025 09:19:16 02/10/2025 10:40:42 Cough 51300934 R05.9 Sore throat 627576504 J0 2.9 Lower resp iratory tract infection 86932080 J22 Otitis ext gely of right ear 3016472443 687707 H60.91 Body mass index 30+ - obesity 240596312 Z68.36 [id number] [place]ocelyn [place] [address] 0 03/21/2025 13:00:38 03/21/2025 14:43:58 Diabetes mellitus 01505746 E11.9 Diabetic p eripheral neuropathy 850553481 E11.40 Allergic rhinitis 872077 04 J30.9 Pain of mu ltiple joints 05424659 M25.50 Type 2 stan betes mellitus without complication 166261174 E11.9 Dysthymia 51469048 F34.1 Pain in limb 40856525 M7 9.609 Primary insomnia 2058131 F51.01 Body mass index 30+ - obesity 940217575 Z68.36 Health Concerns Section Related Observation LastModified by Organization Detai ls LastModified Time None Recorded Concern Status LastModified by Organization Details LastModified Time None Recorded Advance Directives Directive N: Payers Insurance Date Sequence Insurance Name Policy Number Policy Suresh Covered Member ID Suresh Member ID Guarantor Name 03/18/2025 [place] DAMIÁN [facility]artner [facility] Tasha Lewis [id number] Tasha Lewis 03/17/2025 SLIDING FEE SCHEDULE - DISCOUNT Tasha Jay 09/23/2023 2 [place]) Tasha R Debbie [id number] Tasha Debbie 03/18/2025 1 [employer]NA (MEDICARE REPLACEMENT/A DVANTAGE - HMO) Tasha R Jay [id number] Tasha Jay 11/05/2023 SLIDING FEE SCHEDULE - DISCOUNT Tahsa Jay 02/24/2025 3 [employer] [place] (MEDICAID REPLACEMENT - HMO) Tasha R Jay [id number] Tasha Jay 03/17/2025 SLIDING FEE SCHEDULE - DISCOUNT Tasha Debbie 03/22/2025 2 MEDICAID-[facility] HEALTH CHOICES - FFS/TRADITION AL Tasha R Jay [id number] Tasha Debbie Notes Date Note Type Note Provider Name and Address Organization Details Recorded Time 10/14/2024 text/html pt here today with c/o scalp pain x5 days. pt states that it is not a headache pt her scalp is tender to touch. pt states that she did get new glasses but hasnt been wearing them. does not wear her hair in a pony tail or head bands. did not wash her hair in anything new. pt states that the pain start around the area just above her right ear and now it has moved to her right christianity area. pt states that if she lays down on a pillow it doesnt make it worse but after a while it goes away. on exam, pt hair is freshly washed, pt does not have lice, no flakes or dandruff, no dryness, no sore, no signs of shingles, does have tenderness to touch to right christianity area, no edema in christianity, denies any vision changes, PERLLEN, neuro assessment WNL, neg for bells palsy, i will order labs today to r/o temporal arteritis and order steroids. highly advised pt if she has any worsening symptoms over the weekend to go to ER. pt voiced understanding. Jocelyn Lay APRN [address] [facility], [place], [address], [facility] [employer] 10/14/2024 09:58:24 12/21/2024 text/html pt here today fo r medication refills. pt states shes doing well on current medication regime. A1C 6.3, 6.5 at last visit. foot exam preformed. left foot with decreased sensation. right foot with decreased sensation and 5th digit pt states that she cannot move it and it actually just bounces back when manually move it the great toe with bunion and 2nd digit with hammer toe. pt states that the 5th digit can be painful, however doesnt recall any trauma or injury. i will get an xray. pt has some fungus and callous. i suggested referral to podiatry. pt declined at this time. pt also c/o low back pain and states that she has a hx of herniated disc sx several years ago. states that it has started hurting again. assessment WNL. i will order xray. Jocelyn Lay APRN [address] [place], [address], [employer] 12/21/2024 12:42:41 02/08/2025 text/html pt here today with c/o right ear pain and cough x3 days. pt states that she hear a pop in hear ear and then drainage came out and it has been painful since. on exam, right ear red with fluid, lungs decreased with strong cough. i will order abx and steroids. educated pt on new meds. pt voiced understanding. increase fluids. return for worsening symptoms. Jocelyn Lay APRN [address] [place], [address], [employer] 02/08/2025 14:56:08 02/10/2025 text/html pt here today stating that she is feeling no better with cough and right ear pain x1 week. pt was seen 2 days ago and was prescribed abx and steroids and states that she is feeling worse. rapid flu, strep and covid neg. on exam, right ear with white drainage, throat WNL, lungs decreased. i will order steroid injection and change abx. pt voiced understanding. Jocelyn Lay APRN [address] [place], [address], [employer], [employer] 02/10/2025 10:40:08 03/21/2025 text/html pt here today fo r medication refills. A1C 7.2, 6.3 at last visit. pt states that she is taking all meds as prescribe and there has been no changes in her diet. pt has lost 14 lbs since last visit. pt also states that she has been having trouble sleeping. pt has also been under alot of stress lately due to her daughter coming back and taking her daughter (pt granddaughter) back and her not being able to see her anymore. i will order melatonin to help with the ambien just until pt is under less stress. Jocelyn Lay APRN [address] [facility], [place], [address], [facility] [employer] 03/21/2025 13:48:27 OBGyn Episode No OBEpisode recorded.
--- OUTSIDE RECORDS SUMMARY | 2025-05-16 12:37 | XMS_ITS | Clinical Summary ---
Author Organization [facility] Address 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 Name Role Phone Unavailable Primary Care Provider Unavailabl e Social History Tobacco Use Types Packs/Day Years Used Date Smoking Tobacco: Never Assessed Comments Unknown Sex and Gender Information Value Date Recorded Sex Assigned at Not on file Legal Sex Female 12:30 PM EST Gender Identity Not on file Sexual Orientation Not on file Obstetrics History Para Term AB IAB SAB Ectopic Multiple Livin g Live Births 5 Plan of Treatment Health Maintenance Due Date Last Done Comments Wellness Exam Medicare 01/29/1976 Hepatitis B Vaccine (1 of 3 - 19+ 3-dose series) 01/29/1992 Cervical Cancer Screening 1994 Pap Smear 1994 HPV/Pap Cotest 2003 Cologuard 2018 Colon Cancer Screening 2018 Colonoscopy 2018 FIT 2018 Sigmoidoscopy 2018 Virtual Colonography 2018 Pneumococcal Vaccine 50+ (1 of 1 - PCV) 2023 Zoster (1 of 2) 2023 COVID-19 Vaccine (2023-2 5 season) 2024 Influenza Vaccine (Season Ended) 2025 08/21/2017, 09/04/2016 Breast Cancer Screening 12/27/2026 12/27/19 25, 01/02/2024 DTaP/TDaP/Td (2 - Td or Tdap) 10/09/2033 10/09/2023 Meningococcal B Vaccine Aged Out No l onger eligible based on patient's age to complete this topic Procedures Procedure Name Priority Date/Time Associated Diagnosis Comments MM MAMMO DIGITAL PARTH SCREEN BILAT Routine 12/27/2024 10:05 AM EST Encounter for screening mammogram for malignant neoplasm of breast from Last 3 Months or Most Recently Relevant to Health Maintenance Results * MM MAMMO DIGITAL PARTH SCREEN BILAT (12/27/2024 10:05 AM EST) Anatomical Region Laterality Modality Breast Bilateral Mammography 12/27/2024 10:0 5 AM EST Impressions 12/29/2024 7:36 AM EST Negative (YDN-Ejagnalh-5) RECOMMENDATION: Routine Screening Mammogram in 1 Year Bilateral No additional recommendation No additional laterality COMMENTS: Narrative 12/29/2024 7:36 AM EST EXAM: MM MAMMO DIGITAL PARTH SCREEN BILAT EXAM DATE: 12/27/2024 10:05 AM INDICATION: Z12.31-Encounter for screening mammogram for malignant neoplasm of aicwzu-ZDS-56-CM COMPARISON STUDIES: Compared with prior studies the most recent being 01/02/2024 MM MAMMO DIGITAL PARTH SCREEN BILAT at [facility] TISSUE DENSITY: There are scattered areas of fibroglandular density. FINDINGS: No mammographic evidence of malignancy. Procedure Note Tim Chun, - 12/29/2024 EXAM: MM MAMMO DIGITAL PARTH SCREEN BILAT EXAM DATE: 12/27/2024 10:05 AM INDICATION: Z12.31-Encounter for screening mammogram for malignantneoplasm of turqth-WJD-75-CM COMPARISON STUDIES: Compared with prior studies the most recent being 01/02/2024 MM MAMMO DIGITAL PARTH SCREEN BILAT at [facility] TISSUE DENSITY: There are scattered areas of fibroglandular density. FINDINGS: No mammographic evidence of malignancy. IMPRESSION: Negative (VDN-Kybuzdoh-9) RECOMMENDATION: Routine Screening Mammogram in 1 Year Bilateral No additional recommendation No additional laterality COMMENTS: Jocelyn Lay NUTRITION SERVICES ASSISTANT IMG MAMMOGRAPHY ORDERABLE S Final Result from Last 3 Months or Most Recently Relevant to Health Maintenance Insurance HU[employer]NA MEDICARE HMO MR
--- OUTSIDE RECORDS SUMMARY | 2025-05-16 12:37 | XMS_ITS | Continuity of Care Document ---
Author Organization [facility], [facility] Address [address] [place] [address] Assessment No assessment recorded. Plan of Treatment Reminders Order Date Submit Date Provider Last Modified By Organization Details Last Modified Time Details Appointments FOLLOW UP 30 2024 08:00A M Valentin Lay APRN Not available Not available Not available Lab HbA1c (hemoglob in A1c), blood [address], [address] [place] [address], [address], 03/21/2025 13:48:38 Referral None recorded. Procedures None recorded. Surgeries None recorded. Imaging None recorded. Medication Orders tizanidin e 4 mg tablet 2024 025 [facility], [address] [place] [address], [address], 03/21/2025 14:00:31 loratadin e 10 mg tablet 2024 025 [facility], [address] [place] [address], [address], 03/23/2025 13:22:24 zolpidem 10 mg tablet 2024 025 [facility], [address] [place] [address], [address], 04/25/2025 10:54:10 melatonin 10 mg tablet 2024 025 [facility], [address] [place] [address], [address], 03/24/2025 15:18:17 gabapenti n 800 mg tablet 2024 025 [facility], [address] [place] [address], [address], 03/21/2025 14:10:33 paroxetin e 20 mg tablet 2024 025 [facility], [address] [place] [address], [address], 03/21/2025 14:00:29 Ozempic 0.25 mg or 0.5 mg (2 mg/3 mL) subcutane ous pen injector 2024 025 [facility], [address] [place] [address], [address], 03/21/2025 14:05:35 meloxicam 15 mg tablet 2024 025 [facility], [address] [place] [address], [address], 03/21/2025 14:00:28 Patient TargetsNo targets recorded. Patient InstructionsNo instructions recorded. Reason for Referral None Reported. Results Created Date Observation Date Name Description Value Unit Range Abnormal Flag Note LastModifiedBy Organization Detail LastModifiedTime 03/21/2003/21/2025 HbA1c (hemo globi n A1c), blood HbA1c 7.2 Not Available [address], [address], 03/21/2025 13:08:13 04/19/2004/19/2025 XR, foot, 3 or more view No observ ation record ed. [email or web address] [facility] [address], [place], [address], 04/19/2025 15:43:07 04/19/20 25 04/19/2025 XR, foot, 3 or more view No observ ation record ed. [email or web address] [facility] [address], [place], [address], 05/02/2025 09:41:12 Result Notes None recorded. Problems Name Problem SNOMED Code Status Onset Date Resolution Date Notes Provider Name and Address Organization Details Recorded Time Pain in limb 37600623 Active 2023 GEOVANNY BARLOW, MANHOLE [employer]ILDER-[employer] [address] [place] [address], [phone], [employer] 4 08:27:41 Diabetic peripheral neuropathy 112254395 Active 2023 Jocelyn Lay FAMILY SUPPORT SPECIALIST [address] [place] [address], [phone], [employer] 4 16:26:09 Chronic obstructive pulmonary disease 43147153 Active 2023 Luz Marina chiang, [employer] 4 11:39:06 Diabetes mellitus 94570954 Active 2023 Luz Marina chiang, [employer] 4 12:01:05 Sore throat 266262979 Active 2024 Luz Marina chiang, [employer] 5 10:04:19 Problem Notes None recorded. Procedures Surgical History Date Name Laterality Status Provider Name and Address Organization Details Recorded Time 07/01/20 24 Date of Last Pap Smear completed Luz Marina [employer] 09/20/2024 09:00:43 01/02/20 24 Most Recent Mammogram completed Luz Marina [employer] 01/12/2024 16:56:29 Back Surgery completed [employer] 09/23/2023 15:32:56 Tubal Ligation completed [employer] 09/23/2023 15:32:56 Gallbladder Surgery completed [employer] 09/23/2023 15:32:56 Partial Hysterectomy completed [employer] 09/23/2023 15:32:56 Imaging Results None recorded. Procedure Notes None recorded. Medical Equipment None Reported. Allergies Allergen ID Allergen Name Allergen Category Reaction Reaction Severity Criticality Documentation Date Start Date Code Code System Note Provider Name and Address Organization Details Recorded Time 57037 Substance with sulfonami de structure and antibacte rial mechanism of action (substanc e) medicatio n Not available Not available Not available 09/23/2023 93297 8003 SNOMED Jacqueline Rapides [employer]. 15:33:33 37928 acetamino phen / hydrocodo ne medicatio n Not available Not available Not available 09/23/2023 71210 2 [employer] 15:33:46 88235 shellfish derived food,medi cation Not available Not available Not available 09/23/2023 77768 UNK Jacqueline Rapides [employer], [employer] 15:33:51 65052 cephalexi n medicatio n flushing mild Not available 10/09/2023 2231 RxNorm Jocelyn Lay, FAMILY SUPPORT SPECIALIST [address] [place] [address], [phone], [employer] 3 17:07:19 Medications Name Sig Start [...] 2024 active Not Available Not Available Not Avleslie lable Linzess 290 mcg capsule active Not Available [...] Not Available Not Available Not Avai lable Vitals Date Recorded Body height Body mass index (BMI) Body weight Heart rate Oxygen saturation Oxygen saturation in Arterial blood by Pulse oximetry Systolic blood pressure Diastolic blood pressure Provider Name and Address Organization Details Last Updated DateTime 04/28/202 5 162.56 cm 32.1 kg/m2 53568.7 7 g 96 /min 95 % 95 % 122 mm[Hg] 79 mm[Hg] Luz Marina Christie [employer] 13:14:21 Social History Question Answer Notes LastModified by Organizat ion Details LastModified Time Tobacco Smoking Status Current Every Day Smoker Jacqueline chiang [employer] 09/23/2023 15:33:05 Do You Have An [...] Do You Have A Medical Power Of Dicer Machine Operator? No Information not available 09/23/2023 What Was [...] have you been involved with bullying? No [email or web address] Information not available 09/23/2023 Family History Relationship Description Onset Age of this Age Resolved Age Notes LastModified by Organization Details LastModified Time Mother Hypercholest erolemia [email or web address] Not available 2022 15:33:16 Mother Hypertensive disorder [email or web address] Not available 2022 15:33:16 Father Hypercholest erolemia [email or web address] Not available 2022 15:33:16 Father Hypertensive disorder [email or web address] Not available 2022 15:33:16 Medical History Condition Response Anxiety Disorder Y Diabetes Y Other Y Arthritis Y Hospitalizations N [...] Tdap 10/09/20 23 completed Jocelyn Lay APRN [address] [place], [address], [employer] 10/09/2023 15:16:25 zoster recombinant 03/23/20 24 cancelled patient objection Jocelyn Lay APRN [address] [place], [address], [employer] 03/23/2024 10:18:41 Influenza, split virus, quadrivalent, PF 08/21/20 17 completed Jacqueline chiang, [employer] 01/26/2024 15:44:18 Influenza, split virus, quadrivalent, PF 09/04/20 16 completed Jacqueline chiang [facility], [employer] 01/26/2024 15:44:18 Past Encounters Encounter ID Performer Location Encounter Start Date Encounter Closed Date Diagnosis/Indication Diagnosis SNOMED-CT Code Diagnosis ICD10 Code Diagnosis Note [id number] Jocelyn Lay [address] [address] 03/21/2025 13:00:38 03/21/2025 14:43:58 Diabetes mellitus 99015722 E11.9 Diabetic p eripheral neuropathy 507022383 E11.40 Allergic rhinitis 450874 04 J30.9 Pain of mu ltiple joints 42044048 M25.50 Type 2 stan betes mellitus without complication 362361471 E11.9 Dysthymia 89992802 F34.1 Pain in limb 17558648 M7 9.609 Primary insomnia 5265068 F51.01 Body mass index 30+ - obesity 383584478 Z68.36 Health Concerns Section Related Observation LastModified by Organization Detai ls LastModified Time None Recorded Concern Status LastModified by Organization Details LastModified Time None Recorded Payers Encounter Date Sequence Insurance Name Policy Number Policy Suresh Covered Member ID Suresh Member ID Guarantor Name 03/21/2025 1 [employer] (MEDICARE REPLACEMENT /ADVANTAGE - HMO) Tasha Lewis [id number] Tasha Lewis 03/21/2025 2 MEDICAID-[facility] CHOICES - FFS/TRADITI ONAL Tasha Lewis [id number] Tasha Lewis Notes Date Note Type Note Provider Name and Address Organization Details Recorded Time 03/21/2025 text/html pt here today fo r [...] under less stress. Jocelyn Lay APRN [address] [facility], [place], [address], [facility] [employer] 03/21/2025 13:48:27 OBGyn Episode No OBEpisode recorded.
--- NOTE | 2025-05-16 12:41 | XR_ITS ---
FINAL REPORT CLINICAL HISTORY: Left foot FX f/u COMPARISON: 04/19/2025 FINDINGS: LEFT FOOT Three views were obtained. There is persistent cortical thickening and lucency at the site of the healed fifth metatarsal fracture. There is cortical thickening of the distal fourth metatarsal fracture. Mild degenerative changes are present. IMPRESSION: Healed 4th and 5th metatarsal fractures without interval change. Reviewed, Interpreted and Dictated by Sushila Zamora MD Transcribed by Tania Bradley Authenticated and [facility]
== END 2025-05-16 23:59 | disposition home or self-care (01) ==
LOC: RAD 12:34
PROVIDERS: PCP Nurse Practitioner; Visit Provider Podiatrist
DX: M84.375D Stress fracture, left foot, subsequent encounter for fracture with routine healing (principal)
CPT/HCPCS: 73630

== ENCOUNTER 2025-08-03 08:16 | Outpatient (CLI) | payer MEDICARE, MEDICAID, SELFPAY ==
--- OUTSIDE RECORDS SUMMARY | 2025-08-03 08:37 | XMS_ITS | Clinical Summary ---
Author Organization [facility] Address [address] [place] [address] Phone Care Team Providers Care Technical Services Manager Name Role Phone Unavailable Primary Care Provider [...] Zoster (1 of 2) 2023 COVID-19 Vaccine (1 - 2023-2 5 season) 2025 Influenza Vaccine (#1) 2025 7, 09/04/2016 Breast Cancer Screening 12/27/2026 12/27/19 25, [...] EST Impressions 12/29/2024 7:36 AM EST Negative (LDC-Vffkgygp-6) RECOMMENDATION: Routine Screening Mammogram in 1 Year Bilateral No additional recommendation No additional laterality COMMENTS: Narrative 12/29/2024 7:36 AM EST EXAM: MM MAMMO DIGITAL PARTH SCREEN BILAT EXAM DATE: 12/27/2024 10:05 AM INDICATION: Z12.31-Encounter for screening mammogram for malignant neoplasm of xktoiu-WQT-69-CM COMPARISON STUDIES: Compared with prior studies the most recent being 01/02/2024 MM MAMMO DIGITAL PARTH SCREEN BILAT at [facility] TISSUE DENSITY: There are scattered areas of fibroglandular density. FINDINGS: No mammographic evidence of malignancy. Procedure Note Tim Chun, - 12/29/2024 EXAM: MM MAMMO DIGITAL PARTH SCREEN BILAT EXAM DATE: 12/27/2024 10:05 AM INDICATION: Z12.31-Encounter for screening mammogram for malignantneoplasm of abaztf-FYI-55-CM COMPARISON STUDIES: Compared with prior studies the most recent being 01/02/2024 MM MAMMO DIGITAL PARTH SCREEN BILAT at [facility] TISSUE DENSITY: There are scattered areas of fibroglandular density. FINDINGS: No mammographic evidence of malignancy. IMPRESSION: Negative (WGT-Jgktqrtv-6) RECOMMENDATION: Routine Screening Mammogram in 1 Year Bilateral No additional recommendation No additional laterality COMMENTS: Jocelyn Lay COMMODITIES BROKER IMG MAMMOGRAPHY ORDERABLE S Final Result from Last 3 Months or Most Recently Relevant to Health Maintenance Insurance [employer] MEDICARE HMO MR
--- NOTE | 2025-08-03 09:00 | MR_ITS ---
FINAL REPORT TECHNIQUE: Multi planar MR imaging was performed through the right foot. CLINICAL HISTORY: Injury of Right Plantar Plate. hx surgery on foot 3 years ago. lateral sided foot and plantar pain. COMPARISON: None FINDINGS: There is marked degradation of overall image quality secondary to motion artifact on numerous sequences. There is artifact along the lateral mid and forefoot secondary to hardware in the fifth metatarsal. Bone marrow signal intensity is otherwise normal without edema, fracture or pathologic marrow replacement. Joint spaces are preserved. The Lisfranc joint is intact. The Lisfranc ligament is not well-visualized secondary to motion. The flexor and extensor tendons to the toes are grossly intact. The Achilles tendon is intact. The plantar fascia appears intact. There is no acute soft tissue abnormality. No loculated fluid collection is identified. IMPRESSION: Markedly limited examination of the foot, secondary to motion artifact and artifact from hardware involving the fifth metatarsal. No gross focal bony abnormality is identified. The plantar fascia appears intact. The Lisfranc ligament is not well-visualized. Reviewed, Interpreted and Dictated by Yaiam Goel MD Transcribed by Roula Bonner Authenticated and [facility]
== END 2025-08-03 23:59 | disposition home or self-care (01) ==
LOC: RAD 08:16
PROVIDERS: PCP Nurse Practitioner; Visit Provider Nurse Practitioner
DX: M84.374A Stress fracture, right foot, initial encounter for fracture (principal); R93.6 Abnormal findings on diagnostic imaging of limbs
CPT/HCPCS: 73718